=== PATIENT | male | born 1975 | race Caucasian/White ===

== ENCOUNTER 2021-09-21 16:47 | Emergency (ER) | payer OTHER, MEDICAID ==
[~2021-09-21] VITALS: Ht 176 cm; Wt 109.0 kg
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
[2021-09-21 17:13] LABS: HEMATOCRIT 43 % (40-54); HEMOGLOBIN 13.4 g/dL (13.3-17.7); MEAN CORPUSCULAR HEMOGLOBIN 29 pg (25-34); MEAN CORPUSCULAR HGB CONC 32 g/dL (32-36); MEAN CORPUSCULAR VOLUME 92 fL (80-99); MEAN PLATELET VOLUME 8.6 fL (9.0-12.2); PLATELET COUNT 300 10^3/uL (130-400); WHITE BLOOD COUNT 8.9 10^3/uL (4.3-11.0)
[2021-09-21] MEDS ORDERED: HYDROmorphone 2 MG/ML VIAL (DILAUDID) IV ONE ×3 (17:15→19:15)
[2021-09-21 17:17] LABS: ALBUMIN 3.9 GM/DL (3.2-4.5); CHLORIDE 103 MMOL/L (98-107); POTASSIUM 3.9 MMOL/L (3.6-5.0); SODIUM 144 MMOL/L (135-145)
[2021-09-21 17:19] LABS: CALCIUM 9.3 MG/DL (8.5-10.1)
[2021-09-21 17:20] LABS: GLUCOSE 99 MG/DL (70-105); TOTAL PROTEIN 7.4 GM/DL (6.4-8.2)
[2021-09-21 17:21] LABS: CARBON DIOXIDE 29 MMOL/L (21-32)
[2021-09-21 17:22] LABS: BILIRUBIN,TOTAL 0.2 MG/DL (0.1-1.0)
[2021-09-21 17:23] LABS: ALKALINE PHOSPHATASE 82 U/L (40-136); PHOSPHORUS 3.3 MG/DL (2.3-4.7)
[2021-09-21 17:24] LABS: CREATININE SERUM 1.25 MG/DL (0.60-1.30); GFR ESTIMATED 62
[2021-09-21 17:25] LABS: BILIRUBIN,DIRECT 0.1 MG/DL (0.0-0.3); BILIRUBIN,INDIRECT 0.1 MG/DL; BUN/CREATININE RATIO 22
[2021-09-21 17:26] LABS: MAGNESIUM 2.1 MG/DL (1.6-2.4)
[2021-09-21 17:27] LABS: ALANINE AMINOTRANSFERASE 13 U/L (0-55)
[2021-09-21 17:28] LABS: FIBRIN DEGRADATION PRODUCTS 0.41 UG/ML (0.00-0.49)
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
[2021-09-21 17:57] LABS: BILIRUBIN,URINE NEGATIVE (NEGATIVE); CLARITY,URINE CLEAR; COLOR,URINE YELLOW; GLUCOSE, URINE (UA) NEGATIVE (NEGATIVE); KETONES,URINE NEGATIVE (NEGATIVE); LEUKOCYTE ESTERASE ,URINE NEGATIVE (NEGATIVE); NITRITE,URINE NEGATIVE (NEGATIVE); PROTEIN,URINE NEGATIVE (NEGATIVE)
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
[2021-09-21 18:07] LABS: AMORPHOUS SEDIMENT,UR RARE AMOR URATES /LPF; BACTERIA,URINE NEGATIVE /HPF; RBC,URINE 0-2 /HPF
[2021-09-21 18:11] LABS: AMPHETAMINE SCREEN, URINE NEGATIVE (NEGATIVE); BARBITURATE SCREEN URINE NEGATIVE (NEGATIVE); BENZODIAZEPINES SCREEN URINE NEGATIVE (NEGATIVE); CANNABINOID SCREEN, URINE NEGATIVE (NEGATIVE); COCAINE SCREEN URINE NEGATIVE (NEGATIVE); METHADONE STAT NEGATIVE (NEGATIVE); METHAMPHETAMINE SCREEN URINE S NEGATIVE (NEGATIVE); OPIATE SCREEN URINE POSITIVE (NEGATIVE); OXYCODONE STAT NEGATIVE (NEGATIVE); PROPOXYPHENE STAT NEGATIVE (NEGATIVE); TRICYCLIC ANTIDEPRESSANTS SCRE NEGATIVE (NEGATIVE)
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
--- NOTE | 2021-09-21 20:14 | Diagnostic Imaging Report ---
INDICATION: Pneumothorax COMPARISON: 09/21/2021 at 4:51 PM FINDINGS: Single view of the chest demonstrates clear lungs bilaterally. The heart is normal. There is no visible pneumothorax on this series. Osseous structures are unremarkable. IMPRESSION: No pneumothorax identified. Dictated by: Dictated on workstation # [id number]
[2021-09-21] MEDS ORDERED: OXYC1TAB11 PO (20:20)
[2021-09-21 20:28] VITALS: BP 134/86
[2021-09-21] MEDS ORDERED: RX-OXYCODONE/APAP 5-325 MG #4 TAB PK PO PRN (20:30)
== END 2021-09-21 20:37 | disposition other institution (70) ==
LOC: ER 16:50
DX: S27.0XXA Traumatic pneumothorax, initial encounter (principal); I11.0 Hypertensive heart disease with heart failure; I50.9 Heart failure, unspecified; V49.40XA Driver injured in collision with unspecified motor vehicles in traffic accident, initial encounter; Y92.410 Unspecified street and highway as the place of occurrence of the external cause
CPT/HCPCS: 70450; 71045; 71260; 72125; 72128; 72131; 72170; 73060; 74177; 80048; 80076; 80306; 81000; 83605; 83735; 84100; 85027; 85379; 85384; 85610; 85730; 86850; 86900; 86901; 86920; 93041; 99283; G0480; 36415; 80320; 96374; 96376